=== PATIENT | male | born 1965 | race Caucasian/White ===

== ENCOUNTER → 2020-10-10 | Outpatient (CLI) | payer OTHER ==
--- NOTE | ~2020-10-10 | TST ---
[place] [address] T[employer]MI[facility] STRESS TEST Name: ARMIN VILLAREAL JR Room: [facility]#: [id number] Admission: 10/10/20 Attend Phys: Marjorie Irving Discharge: Date of : 65 Date of Service: 10/10/20 1504 Report #: [id number] THIS REPORT FOR: cc: Carter Marley,Ketan Pulliam MD [facility] ~ cc: Carter Marley DO DATE OF SERVICE: 10/10/2020 EXERCISE STRESS TEST INDICATION: Stress test was requested on this patient with a history of abnormal coronary artery calcium score. PROCEDURE: The patient was exercised on a Niko protocol stress test with no imaging. RESULTS: The patient had a pretest heart rate of 69, blood pressure 150/86. The patient was able to exercise for 9 minutes achieving a peak heart rate of 143, which is greater than 85% of maximum predicted heart rate for the patient's age. Peak blood pressure 200/86. In recovery, the patient had a heart rate of 88, blood pressure 134/82. The patient denied chest pain. The exercise was terminated due to leg pain. The patient's resting ECG showed a normal sinus rhythm with no significant ST or T-wave change noted at baseline. With exercise, there were no arrhythmias noted. The patient did develop J point depression with exercise, but there was no significant ST segment depression at 80 milliseconds after the J point. IMPRESSION: 1. Clinical response, nonischemic. 2. Exercise capacity, adequate. 3. ECG response, nonischemic. This exercise stress test was felt to represent a low risk for predicting future cardiac events. By: [id number] Ketan Bradley MD, FACC /nt
== END ==
LOC: M.CRD 14:39
PROVIDERS: ATTEND Nurse Practitioner Family
DX: R07.9 Chest pain, unspecified (principal)